=== PATIENT | female | born 1970 | race Caucasian/White ===

== ENCOUNTER 2025-06-25 01:57 | Emergency (ER) | payer SELFPAY ==
--- OUTSIDE RECORDS SUMMARY | 2025-06-17 11:13 | XMS_ITS | Continuity of Care Document ---
Author Organization [facility] Address [address] [place] [address] Phone Care Team Providers Care Production Pattern Maker Name Role Phone Francisco Hdz DO Primary Care Provider [phone] Francisco Hdz DO Attending Provider [phone] Care Teams Patient Care Team Team Status: Active Member Role/Relationship Status Dates Francisco Hdz DO Primary Care Provider Active Patient Care Team Team Status: Inactive Member Role/Relationship Status Dates Francisco Hdz DO Primary Care Provider Active S tart: June 17, 2025 End: June 17, 2025Davisherif Hdz DOAttending ProviderActiveStart: June 17, 2025 End: June 17, 2025 Chief Complaint and Reason for Visit Chief Complaint Admit Date mid back pain June 17, 2025 3 :23pm Reason for Visit Admit Date Depression June 17, 2025 3 :23pm Hypothyroidism June 17, 2025 3 :23pm Shortness of breath June 17, 2025 3 :23pm Thoracic back pain June 17, 2025 3 :23pm Weight loss June 17, 2025 3 :23pm Allergies, Adverse Reactions, Alerts Allergen Type Severity Reaction Last Updated Verified Status No Known Allergies Allergy Unknown June 17, 2025 3:26pmYesActive Social History Smoking Status Status Start Date End Date Date of Observa tion Never smoked tobacco (finding) June 17, 2025 3:38pm Observation Status Observation Response Date of Response Legal Sex Female (finding) Sex Assigned At BirthFemaleSeptember 1969 Family History Relationship Condition Age at Onset Recorded Date/T elsie grandparent History of stroke Unknown DeceasedUnknowngrandparentMalignant neoplasmUnknownDeceasedUnknowngrandparent History of strokeUnknowngrandparentMalignant neoplasmUnknownmotherDiabetes mellitusUnknown Problems Active Problems Problem Diagnosis/Recorded Date Onset Date Status C omments Dyspnea on exertion June 17, 2025 3:46pm Unknown A ctive [facility] 2024 3:55pmUnknownActiveDepressionOhiohealth [facility] 2024 9:12amUnknownActiveHypothyroidismOhiohealth [facility] 2024 9:12amUnknownActiveWeight lossCorewell Health [facility] 2024 3:55pmUnknownActiveIron deficiency anemiaOhiohealth [facility] 2024 9:12amUnknownActiveElbow pain, leftOhiohealth [facility] 2024 9:35amUnknownActiveThoracic back painCorewell Health [facility] 2024 3:46pmUnknownActiveMedial epicondylitis of elbow November 15, 2024 9:42amUnknownActiveleft elbow Medications Medication Status Dose Units Route Directions Qty Days Refills S tart Date Stop Date End Date Reason(s) Instructions Adherence Levothyroxine 112 mcg tablet Discontinued 112 MCG PO Every morning [address] [facility] 2023 10:42amMay 2024 9:22am1 tablet every morning on an empty stomach do not eat or drink for 30-45 min after takingLosartan- Hydrochlorothiazide 50-12.5 mg oujisyYcemmwiqxgzq7AJQHSKxggn884Ghwwenki 2023 10:42amMarch 2024 10:48amLosartan-Hydrochlorothiazide 50-12.5 mg tabletDiscontinued0.ROUTE.NFQERIV634Iqsws 2024 10:48amOctsouthern kentucky rehabilitation hospital 2024 4:05pmTake 1 tablet by mouth once dailyLevothyroxine 112 mcg tabletDiscontinued0 .ROUTE.EHJSOSV543Ful2024 9:21amOctsouthern kentucky rehabilitation hospital 2024 3:43pmTAKE 1 TABLET BY MOUTH ONCE DAILY IN THE MORNING ON AN EMPTY STOMACH. DO NOT EAT OR DRINK FOR 30-45MINUTES AFTER TAKINGLevothyroxine 112 mcg pptpxcOqpjgrxgneot587BDYGE .COMPLEXOctsouthern kentucky rehabilitation hospital 2024 3:42pmOctober 2024 4:23cl878 mcg orally TAKE 1 TABLET BY MOUTH ONCE DAILY IN THE MORNING ON AN EMPTY STOMACH. DO NOT EAT OR D RINK FOR 30-45 MINUTES AFTER TAKING;Prednisone 20 mg jvnzwjFmmcpp3AN.with food or rjjz3043Nyhqmyq 2024 12:00amtake 3 tablets a day x3 days, 2 tabs a day x3 days and then 1 tab a day x3 days orally WITH FOOD ORMILK;Complies with drug therapyLevothyroxine 112 mcg mssrynTmlffc447PICJZ.CGWLHHA670Atihpaw 2024 4:89bg696 mcg orally TAKE 1 TABLET BY MOUTH ONCE DAILY IN THE MORNING ON AN EMPTY STOMACH. DO NOT EAT OR DRINK FOR 30-45 MINUTES AFTER TAKING;Complies with drug therapyLosartan-Hydrochlorothiazide 50-12.5 mg tabletActive0.ROUTE.COMPLEX 901Octsouthern [facility] 2024 4:05pmTake 1 tablet by mouth once dailyComplies with drug therapyLevothyroxine 112 mcg ecdlgxKkajyzwhuegg330ZFDSCLmxcq morningAugus2023 12:00amAugust 2023 9:08am1 tablet every morning on an empty stomach do not eat or drink for 30-45 min after takingLevothyroxine 112 mcg tablet Hwuxxnqkvmyg994BZESBJlopo fukcagd027Unoalp 12th, 2024 9:08amSeptember 2023 9:06am1 tablet every morning on an empty stomach do not eat or drink for 30-45 min after takingLosartan-Hydrochlorothiazide 50-12.5 mg jyuvxkKlssycuktclk8UXTMZ DailySeptember 2023 12:00amSeptember 2023 9:06amLevothyroxine 112 mcg dnxiidWxfjzgppxhmd697FDIRPAsmhw xrulyaj136Kjucwvjjg 30th, 2024 9:06am August 13, 2024 10:42am1 tablet every morning on an empty stomach do not eat or drink for 30-45 min after takingLosartan-Hydrochlorothiazide 50-12.5 mg kstaozLeppvtgvrnxs9GMIIGRlgzm644Bhykcrbdq 2023 9:06amDecember 2023 10:42amFerrous Sulfate (Feosol) 325 mg (65 mg iron) arwbffPtcjzcgrvzna561UGYC .qodMarch 2024 12:00amOctober 2024 3:35pm Immunizations Immunization Event Date Not Given Reason Dose Number [employer] Lot Number Reason(s) Given Vaccine Information Statement (VIS) Detail Administration Location COVID-19 mRNA, Comirnaty (Pfizer) November 18 COVID-19 mRNA, Comirnaty (Pfizer)December 09OVID-19 mRNA, Comirnaty (Pfizer)August 19, 2021Tetanus, Diphtheria, Pertussis (Tdap)January 21, 2013 Trivalent Influenza VaccineOctsouthern [facility] atient Refused Vital Signs Vital Reading Result Reference Range Collection Date/Time Height 60.25 [in_i] June 17, 2025 3:35sdRtcpdz30.36 kgCorewell Health [facility] 2024 3:26pmBody Temperature 98.2 [degF]97.6-99.0[facility] 2024 3:26pmHeart Rate85 /wtf07-569Bjepaxl 2024 3:26pmOxygen saturation by Pulse qvavnryz53 %95-100[facility] 2024 3:26pmBP Lsvmwidf572 mm[Hg]100-140[facility] 2024 3:26pmBP Qgaxycben43 mm[Hg]60-100[facility] 2024 3:26pmBMI (Body Mass Index)36.0 kg/r6Vhviiwu 2024 3:26pm Advance Directives Advance Directive Response Recorded Date/ Time Advance Directives No November 12 025 3:11pm Insurance Providers Guarantor Carol Feliciano e Address [address] [facility] [id number] Info.Home Phone: Payer Group Member ID Coverage Type Subscriber Relationship to Subscriber Effective Date Expiration Date Self Pay nullSelfSelf Encounters Encounter Location(s) Arrival/Admit Date Discharge/Departure Date Discharge/Departure Disposition Provider(s) Departed Physician/ Provider Office Visit -[facility] [place] June 17, 2025 3:23pm June 17, 2025 4:12pm Discharged to home care or self care (routine discharge) Francisco Hdz , DO Recent Diagnosis Onset Date Admit Date Depression Unknown June 17 3:23pm Hypothyroidism Unknown June 17 3:23pm Shortness of breath Unknown May 3:23pm Thoracic back pain Unknown June 17, 2025 3:23pm Weight loss Unknown June 17 3:23pm Assessments Diagnosis Onset Date Resolution Status Admit Date Depression acuteOct2024 3:23pmHypothyroidismacuteOctober 2024 3:23pm Shortness of breathacuteOctober 2024 3:23pmThoracic back painacuteOct2024 3:23pmWeight lossacuteOctober 2024 3:23pm Plan of Treatment Author Lilia Oshea [facility] HospitalAuthoredOctober 2024 4:06pmOn exam I did advise her that this appears to be a musculoskeletal issue. It catches when she takes a deep breath, she says mostly it is in the right side. She will be flying home to [place] soon. I did advise her that this does not appear to be an issue with her gallbladder, if it were it would be pain in the upper right quadrant after eating something from an animal. Does not appear to be pancreas related. I suspect it is nerve or muscle related. Suspect she turned just right while sleeping the night prior to her symptoms starting. Intercostal muscles being tweaked can cause significant pain when they are injured. I did recommend she do gentle walking, avoid bending. I did recommend she take Prednisone to help decrease inflammation. Side effects/risks/benefits of medication were reviewed. Do not take any Motrin, Advil, Aleve, Ibuprofen while on Prednisone. Keep me posted with progress. I did provide her with a refill of thyroid medication today. She voices that she stopped taking the Wellbutrin because she did not want to become dependent on any medication. She describes this as a fat cramp . She feels as if she has a stitch but it is in the middle of her back right now, but it has been all up and down her back. It started last week (06/12 through 06/14/25). It felt like someone was stabbing her and she could not breathe. She was able to get up but it did not matter how she positioned herself but it hurt. Pain subsided over the weekend, this morning at 3 AM she woke up not being able to breathe again and in pain again. She tried to stretch again which made it worse. It was bad until 10 AM today. Now it is gone, but is still there. If she was in a comfortable position she could take a deep breath but she struggles to get a very deep breath without pain.??We discussed blood clots in the lung, but this would not give a two day reprieve and her oxygen is normal. She does not have a fever. She does not have insurance so she declines further work up. If she has any fever, sudden shortness of breath or concerns or worsening symptoms she needs to go to the ER. She feels this is explained by how little she eats. She is trying to stay hydrated with plenty of water daily. She has cut back on her intake of coffee from 2-3 pots to 3-4 cups per day. Future Tests Future scheduled test information is unavailable Pending Tests Pending diagnostic test information is unavailable Future Visits Future appointment information is unavailable Future Procedures Future procedure information is unavailable Future Medications Future medication information is unavailable Patient Instructions Patient instructions are unavailable
[2025-06-25] VITALS (31 sets, daily range): BP systolic 133–220; BP diastolic 78–109; PULSE 61–88; TEMP 36.6; O2SAT 96–100; BMI 36.7
--- NOTE | 2025-06-25 02:00 | ECG_ITS ---
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 Measurements Intervals [place] Rate: 83 P: 61 UT: 158 QRS: 61 QRSD: 78 T: 19 QT: 350 QTc: 390 Interpretive Statements 1100 Sinus rhythm 9110 normal ECG No previous ECG available for comparison Electronically Signed On 06-25-2025 7:37:07 EST by KEMAL KELLY M.D.
--- NOTE | 2025-06-25 02:17 | XR_ITS ---
The [address] [address] Patient Name: SUSANA ARNOLD MRN: [id number] date: 1970 Sex: F Assigned Patient Location: ER Current Patient Location: Accession/Order Number: [id number] Exam Date: 06/25/2025 02:20 Report Date: 06/25/2025 08:03 At the request of: BRYN LE MD Procedure: XR chest 2V PA AND LATERAL CHEST: CLINICAL HISTORY: Pain with inspiration on the right the past 2 weeks COMPARISON: None There is shallow inspiration. There is slight crowding of lung markings and subtle groundglass density. A small amount pleural fluid is present on the right where there may also be basilar atelectasis. The heart is top normal in size. The hilar and mediastinal silhouettes are within normal limits. The visualized bony thorax is intact. There are tiny endplate spurs. XR/XR chest 2V IMPRESSION: MINOR PARENCHYMAL CHANGES AND SMALL RIGHT PLEURAL EFFUSION, DESCRIBED. Impression dictated by: Kathrine Bourgeois M.D. 06/25/2025 8:03 AM Dictation Location: [place] [address] Electronically authenticated by: [id number] Y Date: 06/25/2025 08:03
--- NOTE | 2025-06-25 02:30 | ED_ITS ---
HPI - Chest Pain General Chief Complaint: Chest Pain Stated Complaint: PAINFUL BREATHING Time Seen by Provider: 06/25/25 02:28 Source: patient Mode of arrival: walk-in Limitations: no limitations History of Present Illness HPI narrative: right sided pleuritic chest pain. ongoing for past week. No associated dyspnea or fever. Her BP is elevated . History of white coat syndrome. No nausea or diaphoresis. States the pain switches position Related Data Home Medications ?Medication ?Instructions ?Recorded ?Confirmed levothyroxine 112 mcg tablet 112 mcg PO DAILY 06/25/25 06/25/25 losartan 50 mg-hydrochlorothiazide 1 tab PO DAILY 01/1206/25/25 12.5 mg tablet prednisone 20 mg tablet 20 mg PO DAILY 06/25/2501/12 Allergies Allergy/AdvReac Type Severity Reaction Status Date / Time No Known Drug Allergies Allergy Verified 06/25/25 02:11 Review of Systems ROS Status of ROS 10 or more systems reviewed and unremark able except as noted in history and below PFSH PFSH Social History Little interest or pleasure in doing things: not at all Feeling down, depressed, or hopeless: not at all Exam Constitutional Vital Signs, click to edit/add: Last Vital Signs Temp 97.9 F 06/25/25 02:04 Pulse 80 06/25/25 05:40 Resp 26 H 06/25/25 05:40 BP 144/87 H 06/25/25 05:30 Pulse Ox 96 06/25/25 05:40 O2 Del Method Room Air 06/25/25 02:04 Common normals: no apparent distress, average body habitus, oriented x3, no limitations, healthy appearing, alert and well nourished [facility] Common normals: normocephalic and head/scalp atraumatic Eye Common normals: EOMs intact bilaterally and conjunctivae normal Chest Other: mild right sided chest wall tenderness Respiratory Common normals: normal respiratory effort, no retractions, no use of accessory muscles and clear to auscultation bilaterally Cardio Common normals: regular rate, regular rhythm, S1 normal heart sound and S2 normal heart sound GI Common normals: Normal to inspection, nondistended, normoactive bowel sounds present and soft to palpation Extremity Common normals: normal to inspection and full ROM Neuro Common normals: oriented x3, CN's II-XII intact bilaterally and moves all extremities Psych Appearance: grossly normal Course Vital Signs Vital signs: Vital Signs Temperature 97.9 F 06/25/25 02:04 Pulse Rate 84 06/25/25 02:04 Respiratory Rate 20 06/25/25 02:04 Blood Pressure 203/109 H 06/25/25 02:04 Pulse Oximetry 99 06/25/25 02:04 Oxygen Delivery Method Room Air 06/25/25 02:04 Temperature 97.9 F 06/25/25 02:04 Pulse Rate 80 06/25/25 05:40 Respiratory Rate 26 H 06/25/25 05:40 Blood Pressure 144/87 H 06/25/25 05:30 Pulse Oximetry 96 06/25/25 05:40 Oxygen Delivery Method Room Air 06/25/25 02:04 MDM - Chest Pain MDM Narrative Medical decision making narrative: presents complaining of right sided chest pain. Mild chest wall tenderness. Normal EKG. troponin neg. d-dimer positive. CTA chest neg. mild elevated WBC, afebrile .Patient advised of working diagnosis of musculoskeletal chest pain. Her BP initially was elevated. It reduced to WNL without intervention once she relaxed. She is discharged home with norflex and is to follow up with her doctor Lab Data Labs: Lab Results 06/25/25 Range/Units 02:45 WBC 14.1 H (4.0-11.0) 10^3/uL RBC 5.02 (4.20-5.40) 10^6/uL Hgb 14.3 (12.0-16.0) g/dL Hct 43.4 (36.0-48.0) % MCV 86.5 (81.0-99.0) fL MCH 28.5 (26.7-34.0) pg MCHC 32.9 (29.9-35.2) g/dL RDW 13.0 (11.0-15.0) % Plt Count 427 (150-450) 10^3/uL MPV 10.0 (9.5-13.5) fL Neut % (Auto) 69.7 (43.0-75.0) % Lymph % (Auto) 20.3 L (20.5-60.0) % [place] % (Auto) 6.3 (1.7-12.0) % Eos % (Auto) 2.3 (0.9-7.0) % Baso % (Auto) 0.3 (0.2-2.0) % Neut # (Auto) 9.8 H (1.4-6.5) 10^3/uL Lymph # (Auto) 2.9 (1.2-3.8) 10^3/uL Carroll # (Auto) 0.9 H (0.3-0.8) 10^3/uL Eos # (Auto) 0.3 (0.0-0.7) 10^3/uL Baso # (Auto) 0.0 (0.0-0.1) 10^3/uL Abs Immat Gran (auto) 0.16 H (0.00-0.03) 10^3/uL Imm/Tot Granulo (auto) 1.1 H (0.0-0.5) % D-Dimer 1.53 H* (<=0.59) mg/L FEU Sodium 140 (136-145) mmol/L Potassium 3.4 L (3.5-5.1) mmol/L Chloride 100 (98-107) mmol/L Carbon Dioxide 32.8 H (21.0-32.0) mmol/L Anion Gap 10.6 BUN 16.0 (7.0-18.0) mg/dL Creatinine 0.82 (0.55-1.02) mg/dL Est GFR ( Amer) >60 (>=60 mL/min/1.73m^2) Est GFR (Non-Af Amer) >60 (>=60 mL/min/1.73m^2) BUN/Creatinine Ratio 19.5 Glucose 112 H (74-106) mg/dL Calcium 9.2 (8.5-10.1) mg/dL Total Bilirubin 0.3 (0.2-1.0) mg/dL AST 17 (15-37) U/L ALT 44 (14-59) U/L Alkaline Phosphatase 83 (46-116) U/L Troponin I High Sens 6.6 (4.0-51.3) pg/mL Total Protein 7.6 (6.4-8.2) g/dL Albumin 3.3 L (3.4-5.0) g/dL Globulin 4.3 g/dL Albumin/Globulin Ratio 0.8 Discharge Plan Discharge Chief Complaint: Chest Pain Clinical Impression: Anterior chest wall pain Patient Disposition: Home, Self-Care Prescriptions / Home Meds: No Action levothyroxine 112 mcg tablet 112 mcg PO DAILY losartan-hydrochlorothiazide 50-12.5 mg tablet 1 tab PO DAILY prednisone 20 mg tablet 20 mg PO DAILY Rx Instructions: last dose Print Language: [place] Instructions: Chest Wall Pain (ED) Additional Instructions: follow up with your doctor this week for recheck Referrals: DIANA SALTER [Primary Care Provider, Family Practice] - 1 week
[2025-06-25 02:52] LABS: Hematocrit 43.4 % (36.0-48.0); Hemoglobin 14.3 g/dL (12.0-16.0); Immature Granulocytes Abs Auto 0.16 10^3/uL (0.00-0.03); Immature Granulocytes Pct Auto 1.1 % (0.0-0.5); Lymphocytes Absolute Auto 2.9 10^3/uL (1.2-3.8); Mean Corpuscular HGB Conc 32.9 g/dL (29.9-35.2); Mean Corpuscular Hemoglobin 28.5 pg (26.7-34.0); Mean Corpuscular Volume 86.5 fL (81.0-99.0); Platelet Count 427 10^3/uL (150-450); Red Blood Count 5.02 10^6/uL (4.20-5.40); White Blood Count 14.1 10^3/uL (4.0-11.0)
[2025-06-25 03:09] LABS: Alanine Aminotransferase 44 U/L (14-59); Albumin Globulin Ratio 0.8; Albumin Level 3.3 g/dL (3.4-5.0); Alkaline Phosphatase 83 U/L (46-116); Anion Gap 10.6; Aspartate Amino Transferase 17 U/L (15-37); Blood Urea Nitrogen 16.0 mg/dL (7.0-18.0); Calcium 9.2 mg/dL (8.5-10.1); Carbon Dioxide 32.8 mmol/L (21.0-32.0); Chloride 100 mmol/L (98-107); Estimated GFR (African America >60 (>=60 mL/min/1.73m^2); Estimated GFR (Non-African Ame >60 (>=60 mL/min/1.73m^2); Globulin 4.3 g/dL; Glucose 112 mg/dL (74-106); Potassium 3.4 mmol/L (3.5-5.1); Sodium 140 mmol/L (136-145); Total Protein 7.6 g/dL (6.4-8.2)
== END 2025-06-25 06:43 | disposition home or self-care (01) ==
PROVIDERS: Emergency Provider Internal Medicine; PCP Family Medicine
DX: R07.89 Other chest pain (principal); R79.89 Other specified abnormal findings of blood chemistry
CPT/HCPCS: 36415; 71046; 71275; 80053; 84484; 85025; 85378; 93005; 99285; Q9967